=== PATIENT | male | born 1965 | race Caucasian/White ===

== ENCOUNTER 2020-06-10 09:28 | Emergency (ER) | payer OTHER, SELFPAY ==
[2020-06-10 09:29] VITALS: BP 145/103; PULSE 110; RESP 12; TEMP 36.4; O2SAT 96; BMI 34.7
--- NOTE | 2020-06-10 09:42 | EKG12_ITS ---
Test Reason : CP Blood Pressure : / mmHG Vent. Rate : 094 BPM Atrial Rate : 094 BPM P-R Int : 150 ms QRS Dur : 092 ms QT Int : 360 ms P-R-T Axes : -11 080 030 degrees QTc Int : 450 ms Normal sinus rhythm Normal ECG Confirmed by RHONDA MATHIAS, TRAVIS ([id number]), department editor ANNIE TEJADA ([id number]) on 06/22/2020 11:42:39 AM Referred By: MANOJ Confirmed By:TRAVIS ELLIS MD
--- NOTE | 2020-06-10 09:42 | RAD_ITS ---
STUDY: X-RAY CHEST REASON FOR EXAM: Male, 54 years old. chest and right arm pain 2 days ago, no pain now TECHNIQUE: Single AP portable view of the chest. COMPARISON: None. FINDINGS: The lungs are clear and expanded. There is no demonstrated pleural abnormality. Normal size heart. Normal mediastinum and maritza. Normal visualized pulmonary arteries. Normal visualized aortic arch and descending thoracic aorta. Normal visualized thoracic spine. Normal visualized ribs, clavicles, and shoulders. There is no demonstrated abnormality of the visualized soft tissue structures of the upper abdomen. RAD/Chest 1 View (Portable) IMPRESSION: No evidence of acute cardiopulmonary process. Electronically Signed: Cuong Cruz DO at 10:26 EDT , Service support ,
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
[2020-06-10 10:10] LABS: Absolute Lymphocyte Count 2.84 X10^3/uL (0.83-4.51); Absolute Neutrophil Count 7.2 X10^3/uL (2.0-7.7); Basophil# 0.05 X10^3/uL; Basophil% 0.4 % (0-1); Eosinophil# 0.21 X10^3/uL; Eosinophils% 1.9 % (0-5); Hematocrit 48.3 % (40-54); Hemoglobin 15.3 g/dL (13.0-16.5); Lymphocyte # 2.84 X10^3/ul (4.0); Lymphocyte % 25.3 % (19-41); Mean Corp Hgb Conc 31.7 g/dL (32-36); Mean Corpuscular Hgb 28.4 pg (27.0-32.0); Mean Corpuscular Volume 89.6 fL (80-94); Mean Platelet Vol. 10.3 fl (6.2-12.0); Monocyte# 0.84 X10^3/uL; Monocyte% 7.5 % (0-10); NRBC Flagged by Analyzer 0 % (0-5); Neutrophil # 7.24 X10^3/uL (2.7-7.7); Neutrophil % 64.6 % (47-70); Platelet Count 258 K/mm3 (150-450); RBC Distribution Width CV 14.1 % (11.6-14.6); RBC Distribution Width SD 45.5 fl (35.1-43.9); Red Blood Count 5.39 M/mm3 (4.6-6.2); White Blood Count 11.2 K/mm3 (4.4-11.0)
[2020-06-10] MEDS: Aspirin 81 MG TAB.CHEW 324 MG PO (10:13)
[2020-06-10 10:20] VITALS: BP 122/81
[2020-06-10 10:22] VITALS: O2SAT 96
[2020-06-10 10:26] LABS: Anion Gap 3 (5-15); BUN 18 mg/dL (7-18); BUN/Creat Ratio 20.5 RATIO (10-20); Calcium,Total 9.5 mg/dL (8.5-10.1); Chloride 109 mmol/L (98-107); Creatinine, Serum 0.88 mg/dL (0.70-1.30); EST Glomerular Filtration Rate 95 mL/min (>60); Est Glom Filt Rate - Afr Amer 115 mL/min (>60); Estimated Creatinine Clearance 84.58 ml/min; Glucose 102 mg/dL (74-106); Potassium 4.4 mmol/L (3.5-5.1); Sodium Level 140 mmol/L (136-145)
[2020-06-10 10:32] LABS: D-Dimer Quantitative (DVT/PE) 1.04 FEU/ug/m (0.27-0.49)
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
[2020-06-10 11:45] VITALS: BP 119/71; PULSE 87; RESP 16; O2SAT 99
== END 2020-06-10 11:46 | disposition home or self-care (01) ==
PROVIDERS: Emergency Provider Physician Assistant Medical
DX: R07.89 Other chest pain (principal); R00.2 Palpitations; R79.89 Other specified abnormal findings of blood chemistry; F17.200 Nicotine dependence, unspecified, uncomplicated
CPT/HCPCS: 71045; 71275; 80048; 84484; 85025; 85379; 93005; 99284; Q9967; A4216